=== PATIENT | male | born 2000 | race Caucasian/White ===

== ENCOUNTER 2023-03-31 18:28 | Emergency (ER) | payer SELFPAY ==
[~2023-03-31] VITALS: Ht 170.2 cm; Wt 82.0 kg
[2023-03-31 18:41] VITALS: BP 144/84; PULSE 79; RESP 16; TEMP 98.7; O2SAT 100
== END 2023-04-01 04:06 | disposition left against medical advice (07) ==
LOC: ER 18:28
DX: M54.2 Cervicalgia (principal)
CPT/HCPCS: 99281